=== PATIENT | female | born 1940 | race Caucasian/White ===

== ENCOUNTER 2019-08-21 20:34 | Emergency (ER) | payer MEDICARE, OTHER ==
--- NOTE | 2019-08-21 21:34 | EDM.PDOC ---
ED HPI GENERAL MEDICAL PROBLEM - General Chief Complaint: ENT Problem Stated Complaint: VOMITING Time Seen by Provider: 08/21/19 21:24 Source of Information: Reports: Patient History Limitations: Reports: No Limitations - History of Present Illness INITIAL COMMENTS - FREE TEXT/NARRATIVE: HISTORY AND PHYSICAL: History of present illness: Patient is a 78-year-old female presents to the ED with complaint of cough. Patient states she has had a cough for the past week. She states today she is coughing up a lot of phlegm. She states she had one episode of vomiting after dinner. She denies fevers, chills, chest pain, shortness of breath, diarrhea, abdominal pain. Patient has history of atrial fibrillation on anticoagulants, CHF, hypertension, chronic kidney, disease. She states she has swelling to her lower extremities but this is not new or worsened. Denies smoking history. Review of systems: As per history of present illness and below otherwise all systems reviewed and negative. Past medical history: As per history of present illness and as reviewed below otherwise noncontributory. Surgical history: As per history of present illness and as reviewed below otherwise noncontributory. Social history: No reported history of drug or alcohol abuse. Family history: As per history of present illness and as reviewed below otherwise noncontributory. Physical exam: General: Patient sitting comfortably in no acute distress and nontoxic appearing HEENT: Atraumatic, normocephalic, pupils reactive, negative for conjunctival pallor or scleral icterus, mucous membranes moist, throat clear, neck supple, nontender, trachea midline. No meningeal signs. Lungs: Clear to auscultation, breath sounds equal bilaterally, chest nontender. Heart: S1S2, regular, negative for clicks, rubs, or overt murmur. Abdomen: Soft, nondistended, nontender. Negative for masses or hepatosplenomegaly. Negative for costovertebral tenderness. No rigidity, rebound , guarding. Pelvis: Stable nontender. Genitourinary: Deferred. Rectal: Deferred. Extremities: Atraumatic, negative for cords or calf pain. Neurovascular unremarkable. Neuro: Awake, alert, oriented. Cranial nerves II through XII unremarkable. Cerebellum unremarkable. Motor and sensory unremarkable throughout. Exam nonfocal. Notes: Diagnostics: CBC, CMP, CXR Therapeutics: none Prescriptions: Impression: Acute bronchitis Plan: Take antibiotic as needed as discussed Follow up with primary care provider Return to ED as needed as discussed Definitive disposition and diagnosis as appropriate pending reevaluation and review of above. - Related Data Allergies Allergy/AdvReac Type Severity Reaction Status Date / Time No Known Allergies Allergy Verified 08/21/19 21:13 Home Meds: Home Meds Allopurinol [Zyloprim] 50 mg PO DAILY 08/21/19 [History] Ascorbic Acid [Vitamin C] 500 mg PO DAILY 08/21/19 [History] Calcium Carb/Vitamin D3/Vit K1 [Calcium + D Soft Chewable Tab] 1 each PO DAILY 08/21/19 [History] Calcium Carbonate [Calcium Antacid] 0 mg PO ASDIRECTED 08/21/19 [History] Cetirizine [ZyrTEC] 10 mg PO ASDIRECTED 08/21/19 [History] Docusate Sodium [Colace] 100 mg PO BEDTIME 08/21/19 [History] FLUoxetine [PROzac] 40 mg PO DAILY 08/21/19 [History] Furosemide 20 mg PO ASDIRECTED 08/21/19 [History] Gabapentin [Neurontin] 100 mg PO TID 08/21/19 [History] Multivitamin [Multivitamins] 1 each PO DAILY 08/21/19 [History] Pantoprazole [ProTONIX] 40 mg PO DAILY 08/21/19 [History] Potassium Chloride [Klor-Con 10] 10 meq PO 08/21/19 [History] Sennosides [Senna] 0 mg PO BEDTIME 08/21/19 [History] Spironolactone [Aldactone] 12.5 mg PO DAILY 08/21/19 [History] Warfarin [Coumadin] 3 mg PO ASDIRECTED 08/21/19 [History] Warfarin [Coumadin] 4 mg PO ASDIRECTED 08/21/19 [History] carvediloL [Carvedilol] 6.25 mg PO BID 08/21/19 [History] lisinopriL [Lisinopril] 5 mg PO DAILY 08/21/19 [History] rOPINIRole [Requip] 2 mg PO BEDTIME 08/21/19 [History] traMADol [Ultram] 0 mg PO ASDIRECTED 08/21/19 [History] Past Medical History HEENT History: Reports: Impaired Vision Cardiovascular History: Reports: 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 ED EXAM, ENT - Physical Exam Exam: See Below (see dictation) Course - Vital Signs Last Recorded V/S: Last Vital Signs Temp 97 F 08/21/19 21:05 Pulse 98 08/21/19 21:05 Resp 20 08/21/19 21:05 BP 124/72 08/21/19 21:05 Pulse Ox 93 L 08/21/19 21:05 - Orders/Labs/Meds Labs: Laboratory Tests 08/21/19 08/21/19 Range/Units 21:35 21:35 WBC 5.43 (4.0-11.0) K/uL RBC 3.66 L (4.30-5.90) M/uL Hgb 10.6 L (12.0-16.0) g/dL Hct 34.2 L (36.0-46.0) % MCV 93.4 (80.0-98.0) fL MCH 29.0 (27.0-32.0) pg MCHC 31.0 (31.0-37.0) g/dL RDW Std Deviation 55.9 (28.0-62.0) fl RDW Coeff of Radha 16 H (11.0-15.0) % Plt Count 162 (150-400) K/uL MPV 10.20 (7.40-12.00) fL Neut % (Auto) 67.2 (48.0-80.0) % Lymph % (Auto) 19.9 (16.0-40.0) % [place] % (Auto) 8.3 (0.0-15.0) % Eos % (Auto) 4.2 (0.0-7.0) % Baso % (Auto) 0.4 (0.0-1.5) % Neut # (Auto) 3.7 (1.4-5.7) K/uL Lymph # (Auto) 1.1 (0.6-2.4) K/uL [place] # (Auto) 0.5 (0.0-0.8) K/uL Eos # (Auto) 0.2 (0.0-0.7) K/uL Baso # (Auto) 0.0 (0.0-0.1) K/uL Nucleated RBC % 0.0 /100WBC Nucleated RBCs # 0 K/uL Sodium 142 (136-145) mmol/L Potassium 5.1 (3.5-5.1) mmol/L Chloride 108 H (98-107) mmol/L Carbon Dioxide 22.6 (21.0-32.0) mmol/L BUN 73 H (7.0-18.0) mg/dL Creatinine 2.3 H (0.6-1.0) mg/dL Est Cr Clr Drug Dosing 16.41 mL/min Estimated GFR (MDRD) 20.5 ml/min Glucose 110 H (74-106) mg/dL Calcium 8.7 (8.5-10.1) mg/dL Total Bilirubin 0.4 (0.2-1.0) mg/dL AST 19 (15-37) IU/L ALT 18 (14-63) IU/L Alkaline Phosphatase 96 (46-116) U/L Total Protein 7.4 (6.4-8.2) g/dL Albumin 3.5 (3.4-5.0) g/dL Globulin 3.9 (2.6-4.0) g/dL Albumin/Globulin Ratio 0.9 (0.9-1.6) Departure - Departure Time of Disposition: 21:45 Disposition: Home, Self-Care 01 Condition: Good Clinical Impression: Acute bronchitis - Discharge Information Referrals: Bi Bustamante PA [Primary Care Provider] - Forms: ED Department Discharge Additional Instructions: The following information is given to patients seen in the emergency department who are being discharged to home. This information is to outline your options for follow-up care. We provide all patients seen in our emergency department with a follow-up referral. The need for follow-up, as well as the timing and circumstances, are variable depending upon the specifics of your emergency department visit. If you don't have a primary care physician on staff, we will provide you with a referral. We always advise you to contact your personal physician following an emergency department visit to inform them of the circumstance of the visit and for follow-up with them and/or the need for any referrals to a consulting specialist. The emergency department will also refer you to a specialist when appropriate. This referral assures that you have the opportunity for follow-up care with a specialist. All of these measure are taken in an effort to provide you with optimal care, which includes your follow-up. Under all circumstances we always encourage you to contact your private physician who remains a resource for coordinating your care. When calling for follow-up care, please make the office aware that this follow-up is from your recent emergency room visit. If for any reason you are refused follow-up, please contact the [facility] Emergency Department at and asked to speak to the emergency department charge nurse. [facility] [address] [place] [id number] [id number] Take antibiotic as instructed Follow-up with primary care provider Return to ED as his discussed Sepsis Event Note - Evaluation Sepsis Screening Result: No Definite Risk - Focused Exam Vital Signs: Vital Signs Temp Pulse Resp BP Pulse Ox 08/21/19 21:05 97 F 98 20 124/72 93 L Date Exam was Performed: 08/21/19 Time Exam was Performed: 22:19
[2019-08-21 22:02] LABS: CARBON DIOXIDE,CO2 22.6 mmol/L (21.0-32.0); POTASSIUM,K 5.1 mmol/L (3.5-5.1)
--- NOTE | 2019-08-21 22:18 | CR ---
INDICATION: Vomiting after cough TECHNIQUE: Chest 2 views. COMPARISON: 12/30/2010 FINDINGS: Cardiovascular and mediastinum: Cardiomegaly. Mediastinum is within normal limits. Lungs and pleural spaces: Lungs are clear. No sign of infiltrate or mass. No sign of pleural effusion. No pneumothorax. Bones and soft tissues: No significant findings. IMPRESSION: No evidence for pneumonia. Cardiomegaly. Dictated by Patel Silva MD @ 08/21/2019 10:17:18 PM Dictated by: Patel Silva MD @ 08/21/2019 22:17:24 (Electronically Signed)
== END 2019-08-21 22:39 | disposition home or self-care (01) ==
LOC: MW.ED 20:34
DX: J20.9 Acute bronchitis, unspecified (principal); I10 Essential (primary) hypertension; Z79.899 Other long term (current) drug therapy
CPT/HCPCS: 36415; 71046; 71046-26; 80053; 85025; 99284-25

== ENCOUNTER 2019-10-25 15:54 | Emergency (ER) | payer MEDICARE, OTHER ==
[2019-10-25] MEDS ORDERED: Sodium Chloride 0.9% 10 ML Syringe FLUSH PRN (16:09)
[2019-10-25] MEDS ORDERED: Sodium Chloride 0.9% 10 ML SDV IV PRN (16:09)
[2019-10-25] MEDS ORDERED: Sodium Chloride 0.9% 2.5 ML Syringe FLUSH PRN (16:09)
[2019-10-25] MEDS ORDERED: Sodium Chloride 0.9% 1,000 ML IV SCH (16:15)
--- NOTE | 2019-10-25 16:15 | EDM.PDOC ---
ED HPI GENERAL MEDICAL PROBLEM - General Chief Complaint: Trauma Stated Complaint: ALTERED MENTAL STATUS/FELL Time Seen by Provider: 10/25/19 16:10 Source of Information: Reports: Patient, EMS History Limitations: Reports: No Limitations - History of Present Illness INITIAL COMMENTS - FREE TEXT/NARRATIVE: 79-year-old female with history of Afib on Coumadin, CKD, CHF was brought in by ambulance after being found down in the bathroom at home. Patient states she was trying to get off the toilet and fell about 2 hours ago. Patient has no complaints and is alert and oriented x4. Patient lives alone, and EMS noted that her home conditions were poor. Her son in law normally takes care of her but EMS states patient is saying she has not eaten nor taken any medications in two days. Patient denies headache, chest pain, shortness of breath, hip pain, abdominal pain, lower extremity pain, back pain, neck pain. ROS: A 10-point review of systems, other than pertinent positives and negatives as stated per HPI, is otherwise negative PAST MEDICAL HISTORY: no additional pertinent history. PAST SURGICAL HISTORY: no additional pertinent history. SOCIAL HISTORY: no additional pertinent history. FAMILY HISTORY: no additional pertinent information. Physical Exam General: AOx4, GCS = 15, No distress HEENT: dry mucous membrane, trace dried blood in bilateral nares, no septal hematoma. Neck: supple, no meningismus, no Kernig or Brudzinski Cardiac: S1S2 afib with RVR, LE pedal edema Respiratory: CTAB, no crackles or rales, no wheezing Abdomen: Soft, nontender, no rebound or guarding, nondistended, no pulsatile mass. Hemoccult positive, excoriation noted to the elise-rectal area where trace bright red blood oozing. Skin: Diffuse petechiae Back: nontender to C/T/L spine. Musculoskeletal: NVI distally, no deformity. No tenderness to bilateral hips or lower extremities. 2cm ulcer to right tib/fib with no surrounding erythema or drainage. Neuro: No focal deficits. ED COURSE 1620: Ordered 1L IVF bolus. 1704: BP 84/60 after 1L IVF. 1705: Patient needs transfer to outside facility due to need for higher level of care not available at this facility, and the need for residential sales consultant services unavailable at this facility. Any emergency conditions have been stabilized to the ability of the ED prior to the transfer. Case was discussed with transfer center and transfer arranged to outside facility/higher level of care. Case accepted by Dr. Mullen at [facility]. 1718: Ordered 5 mg IV vitamin K for supratherapeutic INR and active GI bleed. Flight crew will be here in 10 minutes. MDM: I reviewed the patients past medical records, lab and radiographic findings. I discussed the case with family members. My differential diagnosis included: NSTEMI II, Afib with RVR, Hemorrhagic shock, GI bleed. Patient's currently taking Coumadin for history of atrial fibrillation, her INR = 4.8 today with signs of active GI bleed. Her previous INR = 2.21 on 09/21/19. She will be given vitamin K IV for reversal. Despite her elevated troponin, anticoagulation will be withheld secondary to active GI bleed and currently on Coumadin. Her hemoglobin = 9.7, she does not require emergent blood transfusion at this time. Her troponin slightly elevated at 0.062 with no ischemic changes on EKG, she has no complaints of chest pain. I suspect this is likely secondary to type II NSTEMI given her acute renal failure and history of CHF. Her EKG demonstrated A. fib with RVR, her heart rate was slightly over 100 and did not require rate control. CT head was performed and did not reveal any signs of intracranial hemorrhage. Her blood pressure remain soft after 1 L IV fluids. Aspirin was held secondary to active GI bleed. Her creatinine today is 6.3, increased from 2.3 on 08/21/19. Critical Care: The high probability of sudden, clinically significant deterioration in the patient's condition required the highest level of my preparedness to intervene urgently. The services I provided to this patient were to treat and/or prevent clinically significant deterioration. Services included the following: chart data review, reviewing nursing notes and/or old charts, documentation time, residential sales consultant collaboration regarding findings and treatment options, medication orders and management, direct patient care, vital sign assessments and ordering, interpreting and reviewing diagnostic studies/lab tests. Aggregate critical care time includes only time during which I was engaged in work directly related to the patient's care, as described above, whether at the bedside or elsewhere in the Emergency Department. It did not include time spent performing other reported procedures or the services of residents, students, nurses or physician assistants. Frequent interventions and/or frequent repeat evaluations were required as well as counseling and coordination of care regarding prognosis, treatments, and discussions with patient, staff and consultants. Critical Care (excluding other procedures): 40 minutes Impression: 1. Acute on chronic renal failure 2. NSTEMI 3. GI bleed 4. Supratherapeutic INR 5. Self-care deficit 6. Thrombocytopenia 7. A. fib with RVR Onset: Today - Related Data Allergies Allergy/AdvReac Type Severity Reaction Status Date / Time No Known Allergies Allergy Verified 10/25/19 16:11 Home Meds: Home Meds Allopurinol [Zyloprim] 50 mg PO DAILY 08/21/19 [History] Ascorbic Acid [Vitamin C] 500 mg PO DAILY 08/21/19 [History] Calcium Carb/Vitamin D3/Vit K1 [Calcium + D Soft Chewable Tab] 1 each PO DAILY 08/21/19 [History] Calcium Carbonate [Calcium Antacid] 0 mg PO ASDIRECTED 08/21/19 [History] Cetirizine [ZyrTEC] 10 mg PO ASDIRECTED 08/21/19 [History] Docusate Sodium [Colace] 100 mg PO BEDTIME 08/21/19 [History] FLUoxetine [PROzac] 40 mg PO DAILY 08/21/19 [History] Furosemide 20 mg PO ASDIRECTED 08/21/19 [History] Gabapentin [Neurontin] 100 mg PO TID 08/21/19 [History] Multivitamin [Multivitamins] 1 each PO DAILY 08/21/19 [History] Pantoprazole [ProTONIX] 40 mg PO DAILY 08/21/19 [History] Potassium Chloride [Klor-Con 10] 10 meq PO 08/21/19 [History] Sennosides [Senna] 0 mg PO BEDTIME 08/21/19 [History] Spironolactone [Aldactone] 12.5 mg PO DAILY 08/21/19 [History] Warfarin [Coumadin] 3 mg PO ASDIRECTED 08/21/19 [History] Warfarin [Coumadin] 4 mg PO ASDIRECTED 08/21/19 [History] carvediloL [Carvedilol] 6.25 mg PO BID 08/21/19 [History] lisinopriL [Lisinopril] 5 mg PO DAILY 08/21/19 [History] rOPINIRole [Requip] 2 mg PO BEDTIME 08/21/19 [History] traMADol [Ultram] 0 mg PO ASDIRECTED 08/21/19 [History] Past Medical History HEENT History: Reports: Impaired Vision Cardiovascular History: Reports: 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: - Infectious Disease History Infectious Disease History: Reports: Chicken Pox, Measles - Past Surgical History HEENT Surgical History: Reports: None Cardiovascular Surgical History: Reports: None Social & Family History - Family History Family Medical History: Noncontributory - Caffeine Use Caffeine Use: Reports: Coffee, Soda Review of Systems - Review of Systems Review Of Systems: See Below ED EXAM, GENERAL - Physical Exam Exam: See Below Course - Vital Signs Last Recorded V/S: Last Vital Signs Temp 96.1 F L 10/25/19 15:54 Pulse 106 H 10/25/19 15:54 Resp 15 10/25/19 15:54 BP 73/39 L 10/25/19 15:54 Pulse Ox - Orders/Labs/Meds Orders: Active Orders 24 hr Category Date Time Status EKG Documentation Completion [RC] STAT Care 10/25/19 16:09 Active Pulse Oximetry [RC] CONTINUOUS Care 10/25/19 16:10 Active Up With Assistance [RC] ASDIRECTED Care 10/25/19 16:09 Active Vital Signs [RC] Q30M Care 10/25/19 16:09 Active UA RFX PIETER AND CULT IF INDIC [URIN] Stat Lab 10/25/19 16:09 Ordered Sodium Chloride 0.9% [Normal Saline] Med 10/25/19 16:09 Active 10 ml IV ASDIRECTED PRN Sodium Chloride 0.9% [Normal Saline] 1,000 ml Med 10/25/19 16:15 Active IV .BOLUS Sodium Chloride 0.9% [Saline Flush] Med 10/25/19 16:09 Active 10 ml FLUSH ASDIRECTED PRN Sodium Chloride 0.9% [Saline Flush] Med 10/25/19 16:09 Active 2.5 ml FLUSH ASDIRECTED PRN Peripheral IV Insertion Adult [OM.PC] Urgent Oth 10/25/19 16:09 Ordered Medication Orders Sodium Chloride (Normal Saline) 1,000 mls @ 999 mls/hr IV .BOLUS LOC Last Admin: 10/25/19 16:00 Dose: 999 mls/hr Sodium Chloride (Saline Flush) 10 ml FLUSH ASDIRECTED PRN PRN Reason: Keep Vein Open Sodium Chloride (Saline Flush) 2.5 ml FLUSH ASDIRECTED PRN PRN Reason: Keep Vein Open Sodium Chloride (Normal Saline) 10 ml IV ASDIRECTED PRN PRN Reason: IV Use Labs: Laboratory Tests 10/25/19 10/25/19 10/25/19 Range/Units 16:02 16:02 16:02 WBC 7.85 (4.0-11.0) K/uL RBC 3.56 L (4.30-5.90) M/uL Hgb 9.7 L (12.0-16.0) g/dL Hct 33.8 L (36.0-46.0) % MCV 94.9 (80.0-98.0) fL MCH 27.2 (27.0-32.0) pg MCHC 28.7 L (31.0-37.0) g/dL RDW Std Deviation 60.5 (28.0-62.0) fl RDW Coeff of Radha 17 H (11.0-15.0) % Plt Count 78 L (150-400) K/uL MPV 11.40 (7.40-12.00) fL Neut % (Auto) 86.4 H (48.0-80.0) % Lymph % (Auto) 6.4 L (16.0-40.0) % [place] % (Auto) 6.8 (0.0-15.0) % Eos % (Auto) 0.3 (0.0-7.0) % Baso % (Auto) 0.1 (0.0-1.5) % Neut # (Auto) 6.8 H (1.4-5.7) K/uL Lymph # (Auto) 0.5 L (0.6-2.4) K/uL [place] # (Auto) 0.5 (0.0-0.8) K/uL Eos # (Auto) 0.0 (0.0-0.7) K/uL Baso # (Auto) 0.0 (0.0-0.1) K/uL Nucleated RBC % 2.6 /100WBC Nucleated RBCs # 0 K/uL INR 4.79 APTT 45.3 H (18.6-31.3) SEC Sodium 140 (136-145) mmol/L Potassium 4.8 (3.5-5.1) mmol/L Chloride 106 (98-107) mmol/L Carbon Dioxide 15.4 L (21.0-32.0) mmol/L BUN 122 H (7.0-18.0) mg/dL Creatinine 6.3 H (0.6-1.0) mg/dL Est Cr Clr Drug Dosing 6.41 mL/min Estimated GFR (MDRD) 6.4 ml/min Glucose 86 (74-106) mg/dL Calcium 7.7 L (8.5-10.1) mg/dL Total Bilirubin 0.6 (0.2-1.0) mg/dL AST 22 (15-37) IU/L ALT 30 (14-63) IU/L Alkaline Phosphatase 109 (46-116) U/L Creatine Kinase (26-308) U/L Troponin I 0.062 H* (0.000-0.056) ng/mL Total Protein 7.3 (6.4-8.2) g/dL Albumin 3.6 (3.4-5.0) g/dL Globulin 3.7 (2.6-4.0) g/dL Albumin/Globulin Ratio 1.0 (0.9-1.6) 04/16/20 Range/Units 16:02 WBC (4.0-11.0) K/uL RBC (4.30-5.90) M/uL Hgb (12.0-16.0) g/dL Hct (36.0-46.0) % MCV (80.0-98.0) fL MCH (27.0-32.0) pg MCHC (31.0-37.0) g/dL RDW Std Deviation (28.0-62.0) fl RDW Coeff of Radha (11.0-15.0) % Plt Count (150-400) K/uL MPV (7.40-12.00) fL Neut % (Auto) (48.0-80.0) % Lymph % (Auto) (16.0-40.0) % [place] % (Auto) (0.0-15.0) % Eos % (Auto) (0.0-7.0) % Baso % (Auto) (0.0-1.5) % Neut # (Auto) (1.4-5.7) K/uL Lymph # (Auto) (0.6-2.4) K/uL [place] # (Auto) (0.0-0.8) K/uL Eos # (Auto) (0.0-0.7) K/uL Baso # (Auto) (0.0-0.1) K/uL Nucleated RBC % /100WBC Nucleated RBCs # K/uL INR APTT (18.6-31.3) SEC Sodium (136-145) mmol/L Potassium (3.5-5.1) mmol/L Chloride (98-107) mmol/L Carbon Dioxide (21.0-32.0) mmol/L BUN (7.0-18.0) mg/dL Creatinine (0.6-1.0) mg/dL Est Cr Clr Drug Dosing mL/min Estimated GFR (MDRD) ml/min Glucose (74-106) mg/dL Calcium (8.5-10.1) mg/dL Total Bilirubin (0.2-1.0) mg/dL AST (15-37) IU/L ALT (14-63) IU/L Alkaline Phosphatase (46-116) U/L Creatine Kinase 138 (26-308) U/L Troponin I (0.000-0.056) ng/mL Total Protein (6.4-8.2) g/dL Albumin (3.4-5.0) g/dL Globulin (2.6-4.0) g/dL Albumin/Globulin Ratio (0.9-1.6) Meds: Medications Generic Name Dose Route Start Last Admin Trade Name Freq PRN Reason Stop Dose Admin Sodium Chloride 1,000 mls @ 999 mls/hr 10/25/19 16:15 10/25/19 16:00 Normal Saline IV 999 mls/hr .BOLUS LOC Administration Sodium Chloride 10 ml 10/25/19 16:09 Saline Flush FLUSH ASDIRECTED PRN Keep Vein Open Sodium Chloride 2.5 ml 10/25/19 16:09 Saline Flush FLUSH ASDIRECTED PRN Keep Vein Open Sodium Chloride 10 ml 10/25/19 16:09 Normal Saline IV ASDIRECTED PRN IV Use Departure - Departure Time of Disposition: 17:24 Disposition: DC/Tfer to Acute Hospital 02 Condition: Serious Clinical Impression: GI bleed, NSTEMI (non-ST elevated myocardial infarction), Supratherapeutic international normalized ratio (INR), Thrombocytopenia, Self-care deficit for feeding, bathing, and toileting, Acute renal failure (ARF) - Discharge Information Forms: ED Department Discharge Sepsis Event Note - Focused Exam Vital Signs: Vital Signs Temp Pulse Resp BP 10/25/19 15:54 96.1 F L 106 H 15 73/39 L Date Exam was Performed: 10/25/19 Time Exam was Performed: 16:54 - My Orders Last 24 Hours: My Active Orders 10/25/19 16:09 EKG Documentation Completion [RC] STAT Up With Assistance [RC] ASDIRECTED Vital Signs [RC] Q30M UA RFX PIETER AND CULT IF INDIC [URIN] Stat Sodium Chloride 0.9% [Normal Saline] 10 ml IV ASDIRECTED PRN Sodium Chloride 0.9% [Saline Flush] 10 ml FLUSH ASDIRECTED PRN Sodium Chloride 0.9% [Saline Flush] 2.5 ml FLUSH ASDIRECTED PRN Peripheral IV Insertion Adult [OM.PC] Urgent 10/25/19 16:10 Pulse Oximetry [RC] CONTINUOUS 10/25/19 16:15 Sodium Chloride 0.9% [Normal Saline] 1,000 ml IV .BOLUS - Assessment/Plan Last 24 Hours: My Active Orders 10/25/19 16:09 EKG Documentation Completion [RC] STAT Up With Assistance [RC] ASDIRECTED Vital Signs [RC] Q30M UA RFX PIETER AND CULT IF INDIC [URIN] Stat Sodium Chloride 0.9% [Normal Saline] 10 ml IV ASDIRECTED PRN Sodium Chloride 0.9% [Saline Flush] 10 ml FLUSH ASDIRECTED PRN Sodium Chloride 0.9% [Saline Flush] 2.5 ml FLUSH ASDIRECTED PRN Peripheral IV Insertion Adult [OM.PC] Urgent 10/25/19 16:10 Pulse Oximetry [RC] CONTINUOUS 10/25/19 16:15 Sodium Chloride 0.9% [Normal Saline] 1,000 ml IV .BOLUS
[2019-10-25 16:39] LABS: CARBON DIOXIDE,CO2 15.4 mmol/L (21.0-32.0); POTASSIUM,K 4.8 mmol/L (3.5-5.1)
--- NOTE | 2019-10-25 16:51 | CT ---
CT cervical spine Technique: Multiple axial sections through the cervical spine were obtained. Reconstructed sagittal and coronal images were obtained. Findings: Fracture is identified at the base of the dens. This appears to be chronic as posterior fixation is seen between the dens and posterior aspects of C2. No displacement is seen. Severe disc space narrowing is noted at C4-C5, C5-C6, C6-C7 and C7-T1. Large posterior osteophytes are noted at C6-C7. Anterior osteophytes are also noted at the areas of disc space narrowing. No acute fracture is appreciated. Bony structures are osteoporotic. Bony encroachment upon the central canal at C5-C6 and C6-C7. Mild right sided neural foraminal stenosis is noted at C4-C5. Moderate to severe right-sided neural foraminal stenosis is noted at C34. Other neural foramina are fairly well patent. Kyphosis is present and believed to be degenerative in etiology with scoliosis. Diffuse degenerative change is noted within the cervical spine. Impression: 1. Chronic fracture appears to be present within C2. Posterior orthopedic fixation is seen. 2. Diffuse degenerative change as noted above. Osteopenia. 3. Nothing acute is appreciated on CT study of the cervical spine. Diagnostic code #3 Study was dictated in MDT
--- NOTE | 2019-10-25 16:51 | CR ---
Chest: AP view of the chest was obtained. Comparison: Previous chest x-ray of 08/21/19. Heart is enlarged. Atelectasis is seen within the right lung base. Lungs otherwise are clear. Bony structures are osteopenic. Upper mediastinum is within normal limits for AP technique. Impression: 1. Atelectasis within the right lung base. 2. Cardiomegaly. 3. Nothing acute is otherwise appreciated. Diagnostic code #3 Study was dictated in MDT
--- NOTE | 2019-10-25 16:51 | CT ---
Head CT Technique: Multiple axial sections through the brain were obtained. Intravenous contrast was not utilized. Comparison: No prior intracranial imaging. Findings: Ventricles along with basal cisterns and sulci over the convexities are mildly prominent. Old lacunar infarcts are noted within the basal ganglia. Basal ganglia calcification is also noted. No other abnormal parenchymal densities are seen. No evidence of intracranial hemorrhage. No midline shift or mass effect is seen. Bone window settings were reviewed. Visualized paranasal sinuses shows mild mucosal thickening within the right frontal sinus. Small retention cyst is noted within the upper right maxillary sinus. Other visualized paranasal sinuses are clear. Mastoid sinuses show nothing acute. No acute calvarial abnormality is appreciated. Impression: 1. Senescent change as noted above. 2. No acute intracranial abnormality is appreciated. Diagnostic code #2 Study was dictated in MDT
[2019-10-25] MEDS ORDERED: Phytonadione 5 MG in Sodium Chloride 0.9% 50 ML IV ONE (17:17)
== END 2019-10-25 17:58 ==
LOC: MW.ED 15:54
DX: I21.4 Non-ST elevation (NSTEMI) myocardial infarction (principal); K92.2 Gastrointestinal hemorrhage, unspecified; I12.9 Hypertensive chronic kidney disease with stage 1 through stage 4 chronic kidney disease, or unspecified chronic kidney disease; D69.6 Thrombocytopenia, unspecified; N17.9 Acute kidney failure, unspecified; N18.9 Chronic kidney disease, unspecified; I48.91 Unspecified atrial fibrillation; R79.1 Abnormal coagulation profile; Z79.899 Other long term (current) drug therapy; Z79.01 Long term (current) use of anticoagulants; Z72.89 Other problems related to lifestyle
CPT/HCPCS: 36415; 51702; 70450; 71045; 72125; 80053; 82550; 84484; 85025; 85610; 85730; 93005; 96360; 99291; G0390; J7030